=== PATIENT | male | born 1975 | race Caucasian/White ===

== ENCOUNTER 2017-06-08 01:51 | Emergency (ER) | payer OTHER ==
[2017-06-08 02:23] VITALS: RESP 18
[2017-06-08] MEDS ORDERED: methylPREDNISolone SOD SUCCI 125 MG/2 ML VIAL IM STA (02:50)
[2017-06-08] MEDS ORDERED: KETOROLAC 60 MG/2 ML VIAL IM STA (02:50)
[2017-06-08] MEDS ORDERED: ORPHENADRINE 30 MG/ML 2 ML VIAL IM STA (02:50)
--- NOTE | 2017-06-08 03:03 | ED ---
General Adult HPI - General Chief complaint: Back Pain/Injury Stated complaint: Back Injury/Pain Time Seen by Provider: 06/08/17 02:45 Source: patient, RN notes reviewed Mode of arrival: wheelchair Limitations: physical limitation - History of Present Illness Initial comments: 41-year-old male presents to the emergency department with a chief complaint of left-sided back pain that radiates on the left leg. Patient has had this since Friday. It's been on and off. Patient states tonight seemed of flared up more. Keep it anywhere and that leg, shooting pain up the leg which makes it painful for him to walk. He denies any loss of bowel or bladder function. He denies any falls or injuries that flared this up. He does have a history of chronic back pain and states that he has been trying the [id number] medication without much improvement. Patient denies any other symptoms at this time. Patient denies any recent fever, chills, shortness of breath, chest pain, abdominal pain, numbness or tingling, dysuria or hematuria, constipation or diarrhea, headaches or visual changes, or any other current symptoms. - Related Data Previous Rx's Medication Instructions Recorded Ibuprofen [Motrin] 600 mg PO Q6HR PRN #20 tab 06/08/17 Orphenadrine [Norflex] 100 mg PO Q12H #10 tablet.er 06/08/17 predniSONE 50 mg PO DAILY #5 tab 06/08/17 Allergies Allergy/AdvReac Type Severity Reaction Status Date / Time erythromycin base AdvReac Nausea & Verified 06/08/17 02:23 Vomiting procaine [From Novocain] AdvReac Rapid Verified 06/08/17 02:23 Heart Rate Review of Systems ROS Statement: Those systems with pertinent positive or pertinent negative responses have been documented in the HPI. ROS Other: All systems not noted in ROS Statement are negative. Past Medical History Past Medical History: Seizure Disorder History of Any Multi-Drug Resistant Organisms: MRSA Date of last positivie culture/infection: 2004 MDRO Source:: skin Additional Past Surgical History / Comment(s): one kidney removed for donation. Past Psychological History: No Psychological Hx Reported Smoking Status: Never smoker Past Alcohol Use History: None Reported Past Drug Use History: None Reported General Exam Limitations: physical limitation General appearance: alert, in no apparent distress ENT exam: Present: normal exam, mucous membranes moist Neck exam: Present: normal inspection. Absent: tenderness, meningismus, lymphadenopathy Respiratory exam: Present: normal lung sounds bilaterally. Absent: respiratory distress, wheezes, rales, rhonchi, stridor Cardiovascular Exam: Present: regular rate, normal rhythm, normal heart sounds. Absent: systolic murmur, diastolic murmur, rubs, gallop, clicks Extremities exam: Present: normal inspection, full ROM, normal capillary refill. Absent: tenderness, pedal edema, joint swelling, calf tenderness Back exam: Present: normal inspection, full ROM, tenderness (Left SI joint), other (Positive straight leg raise on the left). Absent: paraspinal tenderness , vertebral tenderness, rash noted Neurological exam: Present: alert, oriented X3 Psychiatric exam: Present: normal affect, normal mood Skin exam: Present: warm, dry, intact, normal color. Absent: rash Course Vital Signs 06/08/17 02:17 Temperature 98.1 F Pulse Rate 84 Respiratory 18 Rate Blood Pressure 129/80 O2 Sat by Pulse 99 Oximetry Medical Decision Making - Medical Decision Making 41-year-old male presents with what appears to be a flareup of her left sided sciatica. At this time patient underwent injections. We will start her on muscle axes pain medication steroids for home. We discussed prison. We did discuss follow-up return parameters all questions. Patient stated that he understood. Chest clear. All questions have been answered. He'll be discharged. Disposition Clinical Impression: Sciatica of left side Disposition: HOME SELF-CARE Condition: Stable Instructions: Sciatica (ED) Additional Instructions: Please use medication as discussed. Please follow up with family doctor if symptoms have not improved over the next two days. Please return to the emergency room if your symptoms increase or worsen or for any other concerns. Prescriptions: Ibuprofen [Motrin] 600 mg PO Q6HR PRN #20 tab PRN Reason: Pain Orphenadrine [Norflex] 100 mg PO Q12H #10 tablet.er predniSONE 50 mg PO DAILY #5 tab Referrals: Bryanna Barron MD [STAFF PHYSICIAN] - 1-2 days Time of Disposition: 03:47
[2017-06-08 03:53] VITALS: BP 134/78; PULSE 78; TEMP 98.2
== END 2017-06-08 03:53 | disposition home or self-care (01) ==
LOC: EC 01:51
DX: M54.32 Sciatica, left side (principal); G89.29 Other chronic pain; Z88.1 Allergy status to other antibiotic agents; Z88.4 Allergy status to anesthetic agent; Z86.14 Personal history of Methicillin resistant Staphylococcus aureus infection
CPT/HCPCS: 99283; 96372 ×3; J2360; J2930; J1885